=== PATIENT | male | born 1990 | race Caucasian/White ===

== ENCOUNTER 2018-09-15 10:07 | Emergency (ER) | payer MEDICAID ==
[~2018-09-15] VITALS: Ht 175.3 cm; Wt 95.7 kg
[2018-09-15 10:10] VITALS: Ht 175.3 cm; Wt 95.7 kg
[2018-09-15 11:59] VITALS: BP 126/78
== END 2018-09-15 11:59 | disposition home or self-care (01) ==
LOC: ED 10:07
DX: J40 Bronchitis, not specified as acute or chronic (principal); R13.10 Dysphagia, unspecified
CPT/HCPCS: J0696; J1100; J1885; J7030

== ENCOUNTER 2020-03-02 07:01 | Emergency (ER) | payer OTHER, MEDICAID ==
[~2020-03-02] VITALS: Ht 172.7 cm; Wt 119.3 kg
[2020-03-02 07:14] VITALS: BP 152/89
== END 2020-03-02 08:47 | disposition home or self-care (01) ==
LOC: ED 07:01
DX: S30.0XXA Contusion of lower back and pelvis, initial encounter (principal); X58.XXXA Exposure to other specified factors, initial encounter; Y93.89 Activity, other specified; Y92.89 Other specified places as the place of occurrence of the external cause; Y99.8 Other external cause status

== ENCOUNTER 2020-07-12 11:16 | Emergency (ER) | payer OTHER ==
[~2020-07-12] VITALS: Ht 172.7 cm; Wt 112.9 kg
[2020-07-12 11:25] VITALS: BP 130/89; Ht 172.7 cm; Wt 112.9 kg
== END 2020-07-12 12:46 | disposition home or self-care (01) ==
LOC: ED 11:16
DX: S60.420A Blister (nonthermal) of right index finger, initial encounter (principal); S61.001A Unspecified open wound of right thumb without damage to nail, initial encounter; X58.XXXA Exposure to other specified factors, initial encounter; Y93.89 Activity, other specified; Y92.89 Other specified places as the place of occurrence of the external cause; Y99.8 Other external cause status
CPT/HCPCS: 90715